=== PATIENT | male | born 1970 | race Caucasian/White ===

== ENCOUNTER 2017-01-17 08:40 | Emergency (ER) | payer MEDICARE ==
[~2017-01-17] VITALS: Ht 165.1 cm; Wt 68.0 kg
[2017-01-17 08:40] VITALS: BP 143/77
[~2017-01-17 08:40] MED LIST: /AUGM875TA; ASPI325T; BACT400T; IBUP400T PO; LIDO5DIS EX; TRAM50TA2 OR; TYLE500T53 OR; VICODINES TAB
--- NOTE | 2017-01-17 10:21 | REP ---
Clinical: Pain. Technique: Neutral and frog lateral views of the left hip. Findings: Early advanced degenerative changes are suggested including increased sclerosis to the subchondral acetabulum with marginal spurring and osteophyte formation as well as decreased joint space. No acute fracture dislocation. 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 Signed by Jaime Jesus MD 01/17/2017 10:12 A
[2017-01-17] MEDS ORDERED: HYDR-3713 PO (10:30)
[2017-01-17] MEDS ORDERED: NAPR500T PO (10:30)
== END 2017-01-17 10:35 | disposition home or self-care (01) ==
LOC: M ED 10:03
DX: M16.12 Unilateral primary osteoarthritis, left hip (principal)